=== PATIENT | female | born 1960 | race Caucasian/White ===

== ENCOUNTER 2021-08-13 08:32 | Emergency (ER) | payer BC ==
[~2021-08-13] VITALS: Ht 157.5 cm; Wt 62.6 kg
[~2021-08-13 08:32] MED LIST: CLONAZEPAM 1 MG1 M1; FLUOXETINE HCL40 MG; NORCO 5-325 TA1 EACH PO; ZOCOR40 MG; ZOFRAN ODT4 MG PO
[2021-08-13 09:11] LABS: URINE BILIRUBIN NEGATIVE (Negative); URINE BLOOD NEGATIVE (Negative); URINE CLARITY SL CLOUDY; URINE COLOR YELLOW; URINE GLUCOSE-RANDOM* NEGATIVE (Negative); URINE KETONES NEGATIVE (Negative); URINE LEUKOCYTES-REFLEX NEGATIVE (Negative); URINE NITRITE-REFLEX NEGATIVE (Negative); URINE PROTEIN (DIPSTICK) NEGATIVE (Negative); URINE SPECIFIC GRAVITY 1.025 (1.005-1.035); URINE UROBILINOGEN 0.2 E.U./dl (0.2-1.0)
[2021-08-13 09:20] LABS: AMP/METHAMP Negative (Negative); BARBITURATES Negative (Negative); BENZODIAZEPINES Negative (Negative); COCAINE Negative (Negative); METHADONE Negative (Negative); OPIATES Negative (Negative); PCP Negative (Negative)
[2021-08-13 09:32] LABS: HEMATOCRIT 40.2 % (37.0-47.0); HEMOGLOBIN 13.7 gm/dL (12.0-15.0); MCH 32.5 pg (26.0-34.0); MCHC 34.1 g/dL (28.0-37.0); MCV 95.5 fL (80.0-100.0); RBC 4.21 mil/uL (4.20-5.00); WBC 5.9 thou/uL (4.0-11.0)
[2021-08-13 09:40] LABS: CALCIUM 10.3 mg/dL (8.5-10.1); CREATININE 0.9 mg/dL (0.6-1.0); POTASSIUM 4.1 mmol/L (3.5-5.1)
[2021-08-13 09:48] LABS: ALBUMIN 3.6 g/dL (3.4-5.0); TOTAL BILIRUBIN 0.2 mg/dL (0.2-1.0)
[2021-08-13 11:06] VITALS: BP 115/66
[2021-08-13] MEDS ORDERED: BUSPIRONE HCL10 MG PO (11:42)
== END 2021-08-13 11:45 | disposition home or self-care (01) ==
LOC: ER 08:32
PROVIDERS: Emergency Medicine
DX: R42 Dizziness and giddiness (principal); F41.9 Anxiety disorder, unspecified; F17.210 Nicotine dependence, cigarettes, uncomplicated; E78.00 Pure hypercholesterolemia, unspecified; R00.2 Palpitations; Z88.8 Allergy status to other drugs, medicaments and biological substances